=== PATIENT | male | born 1955 | race Caucasian/White ===

== ENCOUNTER 2019-01-19 18:44 | Inpatient (IN) | payer OTHER ==
[~2019-01-19] VITALS: Ht 167.6 cm; Wt 83.5 kg
[2019-01-19 19:14] VITALS: Ht 167.6 cm; Wt 83.5 kg
--- NOTE | 2019-01-19 19:27 | NUR ---
PT CAME IN FOR SCROTAL/PENILE EDEMA X 1 DAY, STATES HE FEELS LIKE HE MIGHT HAVE A HERNIA 'I LOOKED UP PICTURES ON [employer] IMAGES AND THATS WHAT IT LOOKS LIKE.' STATES 'I'M ABLE TO PEE JUST FINE BUT IT DOESN'T GO WHERE IT NEEDS TO. I HAVE TO HOLD A TOILET PAPER TO MY LEG SO IT DOESN'T GO THERE.' PT AWAKE, ALERT, RESPIRATIONS EVEN AND UNLABORED. SAFETY PRECAUTIONS IN PLACE
--- NOTE | 2019-01-19 19:29 | NUR ---
DR. BARKER IN FOR MSE
--- NOTE | 2019-01-19 19:36 | NUR ---
CLUB MANAGER AT BEDSIDE. PT PROVIDED WITH URINE SPECIMEN CUP AND VERBALIZED FOR NEED TO PROVIDE URINE SAMPLE, PT VERBALIZES UNDERSTANDING.
[2019-01-19 19:56] LABS: CALCIUM 7.6 mg/dL (8.5-10.1); CARBON DIOXIDE 24.3 mmol/L (21-32); CHLORIDE SERUM 108 mmol/L (98-107); CREATININE SERUM 0.8 mg/dL (0.7-1.3); GFR1 > 60 mL/min; GLUCOSE SERUM 149 mg/dL (74-106); POTASSIUM SERUM 3.7 mmol/L (3.5-5.1); SODIUM SERUM 140 mmol/L (136-145)
[2019-01-19 19:59] LABS: BASOPHIL % 0.4 % (0-2)
[2019-01-19 20:00] LABS: PLATELET COUNT 127 x10^3mcL (130-400)
[2019-01-19 20:01] LABS: ALKALINE PHOSPHATASE 231 U/L (46-116); ALT/SGPT 47 U/L (16-63); AST/SGOT 121 U/L (15-37); BILIRUBIN TOTAL 1.9 mg/dL (0.20-1.00)
[2019-01-19 20:02] LABS: ALBUMIN 1.9 g/dL (3.4-5.0); TOTAL PROTEIN, SERUM 6.1 g/dL (6.4-8.2)
--- NOTE | 2019-01-19 20:06 | NUR ---
PT TAKEN FOR ULTRASOUND BY TECH. PT AWAKE, ALERT, RESPIRATIONS EVEN AND UNLABORED
--- NOTE | 2019-01-19 21:07 | NUR ---
MEDICATED PER EMAR. PT AWAKE ,ALERT, RESPIRATIONS EVEN AND UNLABORED. SAFETY PRECAUTIONS IN PLACDE
--- NOTE | 2019-01-19 22:31 | NUR ---
PT COMPLAINS OF PAIN 07/03, DR. BARKER MADE AWARE. PT AWAKE, ALERT, RESPIRATIONS EVEN AND UNLABORED. PT TAKEN FOR CT SCAN BY DECATOR OPERATOR.
--- NOTE | 2019-01-20 00:52 | NUR ---
REPORT GIVEN TO MARIAM ROD, ALL QUESTIONS AND CONCERNS WERE ADDRESSED
[2019-01-20 01:14] LABS: MAGNESIUM 1.5 mg/dL (1.8-2.4); PHOSPHOROUS 2.8 mg/dL (2.5-4.9)
[2019-01-20 01:18] LABS: CHOLESTEROL/HDL RATIO 4.7
--- NOTE | 2019-01-20 01:19 | NUR ---
RECEIVED PT VIA W/C FROM E/D ACCOMPANIED BY TRANSPORTER. PT A/A/O X 4, CALM, COOPERATIVE. DENIES CHEST PAIN OR DISCOMFORT AT THIS TIME. MARY RADIAL AND PEDAL PULSES PRESENT. SCROTAL/PENILE EDEMA +4/+3, SCD BY BEDSIDE. NO ACUTE RESPIRATORY DISTRESS NOTED. ABD SOFT, ROUND, NON-TENDER, NORMOACTIVE BOWEL SOUNDS X 4 QUADS, DENIES ABD PAIN OR DISCOMFORT AT THIS TIME, LAST BM 01/19/19, SOFT. VOIDS FREELY, C/O DARK MIGUEL URINE, ABLE TO USE URINAL, C/O GENITAL/SUPRAPUBIC PAIN, SHARP, 10/10. PT AMBULATORY, WITHOUT GAIT OR BALANCE IMPAIRMENT. IV SITE RAC 20G, CDI. ORIENTED PT TO ROOM, BED CONTROLS, CALL LIGHT SYSTEM. SIDE RAILS UP X 2, BED IN LOW POSITION. WILL ENDORSE TO VIOLA PRITCHARD.
[2019-01-20 01:39] VITALS: BP 147/87
--- NOTE | 2019-01-20 01:41 | NUR ---
C/O 10/10 SUPRAPUBIC PAIN. ADMINISTERED PRN NORCO PRESCRIBED. EDUCATED PATIENT THAT DROWSINESS MAY OCCUR. WILL CONTINUE TO MONITOR AND REASSESS PAIN LEVEL. CALL LIGHT IS WITHIN REACH.
--- NOTE | 2019-01-20 02:13 | NUR ---
MAG 1.[address] SAUNDERS. NO NEW ORDERS AT THIS TIME
[2019-01-20 02:39] LABS: AMPHETAMINE QUAL UR NONE DETECTED (See below)
[2019-01-20 02:41] LABS: UA SPECIFIC GRAVITY 1.015 (1.005-1.035)
[2019-01-20 02:42] LABS: microscopic required? YES; urine erythrocyte 2+ (NEGATIVE)
--- NOTE | 2019-01-20 03:28 | NUR ---
PATIENT IS STILL IN PAIN, BUT DOES NOT WANT PRN PAIN MEDS AT THIS TIME. PATIENT STATES, "I'M JUST GOING TO TRY AND SLEEP." NO DISTRESS NOTED. BREATHING EVEN ON ROOM AIR. PROVIDED PATIENT WITH TOWELS TO ELEVATE SCROTUM AND ICE PACKS FOR THE SWELLING (PER DR. SAUNDERS). IV TO THE RAC, S.L, PATENT AND INTACT. CALL LIGHT IS WITHIN REACH. WILL CONTINUE TO MONITOR.
[2019-01-20 05:22] VITALS: BP 124/73
[2019-01-20 06:04] LABS: BASOPHIL % 0.7 % (0-2); PLATELET COUNT 120 x10^3mcL (130-400)
--- NOTE | 2019-01-20 06:13 | NUR ---
PATIENT SLEPT IN INTERVALS THROUGHOUT THE NIGHT. NO ACUTE/SIGNIFICANT CHANGES NOTED. BREATHING EVEN ON ROOM AIR. NO DISTRESS NOTED. IV TO THE RAC, S.L. PATENT AND INTACT. NO REDNESS OR SWELLING NOTED. COMFORT AND SAFETY MEASURES MAINTAINED. ALL NEEDS AND CONCERNS ADDRESSED. NPO AT THIS TIME PER . PATIENT AWARE AND EDUCATED. YELLOW URINE OUTPUT WITH NO ODOR. ICE PACKS TO SCORTUM AND ELEVATED WITH TOWELS. ODERED SCROTAL SUPPORT. CALL LIGHT IS WITHIN REACH. ALL SAFETY MEASURES MAINTAINED. CALL LIGHT IS WITHIN REACH. WILL ENDORSE CARE TO DAY SHIFT RN
[2019-01-20 06:22] LABS: CALCIUM 7.7 mg/dL (8.5-10.1); CARBON DIOXIDE 25.1 mmol/L (21-32); CHLORIDE SERUM 108 mmol/L (98-107); CREATININE SERUM 0.8 mg/dL (0.7-1.3); GFR1 > 60 mL/min; GLUCOSE SERUM 88 mg/dL (74-106); MAGNESIUM 1.7 mg/dL (1.8-2.4); PHOSPHOROUS 2.8 mg/dL (2.5-4.9); POTASSIUM SERUM 3.7 mmol/L (3.5-5.1); SODIUM SERUM 141 mmol/L (136-145)
--- NOTE | 2019-01-20 06:42 | NUR ---
GAVE PATIENT SCROTAL SUPPORT. PATIENT WAS ABLE TO PUT IT ON HIMSELF.
--- NOTE | 2019-01-20 07:42 | NUR ---
A+OX4, NO RESPRIATORY DISTRESS NOTED, MEDSURG, PULSES MODERATE AND EQUAL MARY, SCROTAL/PENILE EDEMA, LUNG SOUNDS CTA, TOLERATING RA, BOWEL SOUNDS ACTIVE, SCROTAL SUPPORT WITH ICE PACKS, GENERALIZED WEAKNESS, IV IN RAC WITH NS @ 10 ML/HR, SITE WNL, RBC 3.75, H/H 12.8/36, PLT 120, CA 7.7.
[2019-01-20 09:27] VITALS: BP 112/71
--- NOTE | 2019-01-20 10:06 | NUR ---
PT COMPLAINING OF SCROTAL PAIN, MOTRIN GIVEN, NO RESPIRATORY DSITRESS NOTED, CALL LIGHT WITHIN REACH. WITNESSED PT SIGN CONSENT FORMS FOR EGD/COLONOSCOPY. PT STATES DR FREDERICK ANSWERED ALL QUESTIONS ABOUT EGD/COLONSCOPY AT BEDSIDE.
--- NOTE | 2019-01-20 12:13 | NUR ---
PT RESTING IN BED, NO RESPRIATORY DSITRESS NOTED, DRINKING ORAL CONTRAST, AWAITING CT SCAN, CALL LIGHT WITHIN REACH.
--- NOTE | 2019-01-20 14:29 | NUR ---
PT BACK ON UNIT FROM CT SCAN. PT REQUESTING TO TAKE SENOKOT, LACTULOSE, AND BOWEL PREP AFTER HE FINISHES LUNCH SINCE HE WAS DOWNSTAIRS FOR CT SCAN.
[2019-01-20 15:29] VITALS: BP 152/87
--- NOTE | 2019-01-20 16:31 | NUR ---
PT RESTING IN BED, NO RESPRIATORY DISTRESS NOTED, DENIES PAIN, BOWEL PREP INITIATED, CALL LIGHT WITHIN REACH.
--- NOTE | 2019-01-20 18:17 | NUR ---
SECOND ROUND OF BOWEL PREP INITIATED, PT RESTING IN BED, DENIES PAIN, FAMILY AT BEDSIDE, NO RESPIRATORY DSITRESS NOTED, CALL LIGHT WITHIN REACH.
--- NOTE | 2019-01-20 19:20 | NUR ---
ENDORSED CARE TO GHISLAINE.
[2019-01-20 19:50] VITALS: BP 144/79
--- NOTE | 2019-01-20 19:50 | NUR ---
PATIENT RECEIVED IN BED CONVERSING WITH FRIENDS, PATIENT IS ORIENTED X4, SPEECH CELAR. BREATHING EVEN AND UNLABORED BS CLEAR, DENIED SOB, ON ROOM AIR SAT 98%, MED/SURG NON TELE PATIENT, HR=96BPM. DENIES CHEST PAINS. IV SITE NO SIGN OF INFILTRATION, PATIENT IS FOR EGD/COLONOSCOPY IN AM STARTED ON BOWEL PRES, PATIENT STATED HAVING LOOSE BROWN STOOL, DENIED N/V, STATED DULL ABDOMINAL DISCOMFORTS RATE AT 2/10, INFORMED ABOUT PAIN MANAGEMENT. SKIN INTACT. PATIENT INFORMED ABOUT PRE PROCEDURAL PREPARATION. SAFETY MAINTAINED. WILL CONTINUE TO MONITOR.
--- NOTE | 2019-01-20 21:38 | NUR ---
SCHEDULED MEDS ADMINISTERED, PATIENT INFORMED ABOUT PURPOSE OF MED\ PRIOR. TOOK PILL WELL.
--- NOTE | 2019-01-21 | NUR ---
PATIENT SLEEPING QUIETLY THIS TIME, PATIENT AWAKEN WHEN NAME CALLED, PATIENT STATED HIS STOOL OUTPUT IS LIGHT BROWN NOW, PATIENT RE-INSTRUCTED ABOUTN NPO ORDER. VERBALIZED UNDERSTANDING.WILL CONTINUE TO MONITOR.
--- NOTE | 2019-01-21 03:00 | NUR ---
REMAINED ASLEEP,BEEN UP FOR WEN BM. SAFETY MAINTAINED. WILL CONTINUE TO MONITOR.
[2019-01-21 06:00] VITALS: BP 131/68
[2019-01-21 06:24] LABS: BASOPHIL % 0.7 % (0-2); PLATELET COUNT 134 x10^3mcL (130-400)
[2019-01-21 06:39] LABS: RED CELL DISTRIBUTION WIDTH 17.3 % (11.5-14.5)
--- NOTE | 2019-01-21 06:40 | NUR ---
SLEPT OFF AND ON DURING THE SHIFT D/T CONSTANT INTERMITTENT, BOWEL MOVEMENT, PATIENT STATED BM 10X, LAST OUTPUT WAS WITH NO STOOL PARTICLES,YELLOW COLOR.COMPLIANT WITH NPO ORDER. SAFETY PRECAUTIONS MAINTAINED AND OBSERVED. WILL ENDORSE CONITNUITY OF CARE TO INCOMING NURSE.
[2019-01-21 06:55] LABS: CARBON DIOXIDE 24.9 mmol/L (21-32); CHLORIDE SERUM 110 mmol/L (98-107); CREATININE SERUM 0.8 mg/dL (0.7-1.3); GFR1 > 60 mL/min; GLUCOSE SERUM 79 mg/dL (74-106); POTASSIUM SERUM 4.5 mmol/L (3.5-5.1); SODIUM SERUM 142 mmol/L (136-145)
--- NOTE | 2019-01-21 07:27 | NUR ---
REPORT GIVEN TO GI LAB FOR COLONOSCOPY.
--- NOTE | 2019-01-21 07:34 | NUR ---
BEDSIDE HANDS OFF AND INTRODUCTION PERFORMED WITH INCOMING NURSE SARAN.
--- NOTE | 2019-01-21 07:58 | NUR ---
PT OFF UNIT FOR EGD/COLONOSCOPY VIA [facility].
[2019-01-21 08:50] VITALS: BP 121/63
--- NOTE | 2019-01-21 09:34 | NUR ---
PT BACK ON UNIT FROM SURGERY, VS STABLE, PT DROWSY BUT EASILY AROUSED, NO RESPRIATORY DSITRESS NOTED, DENIES PAIN, CALL LIGHT WITHIN REACH.
--- NOTE | 2019-01-21 11:32 | NUR ---
PT RESTING IN BED, NO RESPIRATORY DSITRESS NOTED, DENIES PAIN, CALL LIGHT WITHIN REACH.
--- NOTE | 2019-01-21 14:06 | NUR ---
PT RESTING IN BED, NO RESPIRATORY DSITRESS NOTED, DENIES PAIN, FRIEND AT BEDSIDE, CALL LIGHT WITHIN REACH.
[2019-01-21 17:01] VITALS: BP 104/72
[2019-01-21 17:27] VITALS: BP 104/72
--- NOTE | 2019-01-21 18:11 | NUR ---
PT RESTING IN BED, NO RESPRIATORY DSITRESS NOTED, DENIES PAIN, CALL LIGHT WITHIN REACH.
--- NOTE | 2019-01-21 19:07 | NUR ---
ENDORSED CARE TO GHISLAINE ROD.
[2019-01-21 19:56] VITALS: BP 109/61
--- NOTE | 2019-01-21 19:59 | NUR ---
PATIENT RECEIVED IN BED CONVERSING WITH FRIENDS, PATIENT IS ORIENTED X4, SPEECH CELAR. BREATHING EVEN AND UNLABORED BS CLEAR, DENIED SOB, ON ROOM AIR SAT 96%, MED/SURG NON TELE PATIENT, HR=71BPM. DENIES CHEST PAINS. IV SITE NO SIGN OF INFILTRATION. S/P EGD AND COLONOSCOPY TODAY,TOLERATED PROCEDURE, DENIED N/V, TOLERATED REGULAR DIET, DULL ABDOMINAL DISCOMFORTS RATED AT 2/10 INFORMED ABOUT PAIN MANAGEMENT, SKIN TO SCROTAL AREA RED, USING SCROTAL SUPPORT AND APPLIED ICE. SAFETY PRECAUTIONS MAINTAINED. WILL CONTINUE TO MONITOR.
--- NOTE | 2019-01-21 21:30 | NUR ---
SCHEDULED MEDS ADMINISTERED , PATIENT INFORMED ABOUT EACH MEDS ACTIONS AND PURPOSE PRIOR. TOOK PILLS WELL.
--- NOTE | 2019-01-21 23:35 | NUR ---
RESTING QUIETLY AND COMFORTABLY THIS TIME, AWAKEN WHEN NAME CALLED OFFERED NO COMPLAINT. WILL CONTINUE TO MONITOR.
--- NOTE | 2019-01-22 03:00 | NUR ---
REMAINED ASLEEP NO DISTRESS, WILL CONTINUE TO MONITOR.
[2019-01-22 05:40] VITALS: BP 123/59
--- NOTE | 2019-01-22 06:23 | NUR ---
PATIENT STATED HAD A SRESTFUL AND COMFORTABLE NIGHT, HAD X2 LOOSE BM, VOIDED WITHOUT DIFF. IV SITE NO SIGN OF INFILTRATION. COMPLAINED OF DULL BUT BEARABLE ABDOMINAL PAIN.SAFETY PRECAUTION OBSERVED. WILL ENDORSE CONTINUITY OF CARE TO INCOMING NURSE.
[2019-01-22 06:37] LABS: BASOPHIL % 0.7 % (0-2)
[2019-01-22 06:45] LABS: CALCIUM 8.3 mg/dL (8.5-10.1); CARBON DIOXIDE 27.2 mmol/L (21-32); CHLORIDE SERUM 105 mmol/L (98-107); GFR1 > 60 mL/min; GLUCOSE SERUM 95 mg/dL (74-106); POTASSIUM SERUM 3.8 mmol/L (3.5-5.1); SODIUM SERUM 139 mmol/L (136-145)
--- NOTE | 2019-01-22 07:22 | NUR ---
BEDSIDE HANDS OFF AND INTRODUCTION PERFORMED WITH INCOMING NURSE DEBBIE VARGAS.
[2019-01-22 07:34] LABS: PLATELET COUNT 126 x10^3mcL (130-400)
--- NOTE | 2019-01-22 08:00 | NUR ---
RECEIVED PATIENT WITH DIMINISHED BUT CLEAR BREATH SOUNDS AND WITH SOME SWELLING NOTED TO THE SCROLA AND PENIS AND HAS BEEN ON LASIX IVP AND HE DENIES ISSUES AT THIS TIME. HE DENIE SPROBLEMS WITH URINATION AND HAD BEEN ON LACUTLOSE AND VACNCOMYCIN AD ZITHROMAX ORDERED. PATINTHE VITALS AT THIS TIME AT 97.3, 70, 18, 123/59, 98%. PATIENT HAS BEEN OOB TOLERATE AND NO COMPLAITS OF DIZZINDESS AND GAIT IS STEADY. PATIENT HAS BEEN URINATING WITHOUT PROBLEMS AND IS STATUS POST EGD WITH ESOPHAGEAL VARICIES AND GASTRIC VARICIES WELL AND INTERNAL HEMMORROIDS. PATIENT AHS BEEN WITH PLT AT 126 AND THE RBC AT 381 AND THE CA AT 8.3 AND THE CHOLRIDE AT 110.
[2019-01-22 10:13] VITALS: BP 101/55
--- NOTE | 2019-01-22 10:38 | NUR ---
OOB TOLERATE AND GAVE HIS MEDICAITON AND PATIEN TIS IN NO PAIN OR DISTRESS AT THIS TIME. LASIX GIVEN AND WILL MONITOR OUTPUT OF URINE INDICATED.
--- NOTE | 2019-01-22 14:07 | NUR ---
RESTARTED IV PER PATIENT REQUEST. PATIENT TOLERATED WELL. THE OLD SITE WAS NOT HUTUING HIM BUT THE AREA ABOVE THE SITE WAS. VISITOR AT BEDSIDE AND WANTS [employer] OF ORTHOPAEDIC TECHNOLOGIST PAPERWORK. ADVISED THIS CAN BE RUN OFF VIA THE INTERNET AND THAT IT WILL NEED TO BE NOTORIZED. THEY WANT THE PAPER WORK THOUGH.
[2019-01-22 16:10] VITALS: BP 102/54
--- NOTE | 2019-01-22 17:59 | NUR ---
NO ADVERSE RECATION TO THE ANTIBIOTICS AND PATIENT AHS BEEN SLEE;PING ON AND OFF. WILL CONTINUE TO MONTIOR AND ENDORSE TO NURING ON LIME HIDE INSPECTOR.
--- NOTE | 2019-01-22 19:05 | NUR ---
REPORT RECIEVED FROM DAY SHIFT RN. PATIENT WAS SEEN AND IS RESTING COMFORTABLY IN BED. BREATHING EVEN ON ROOM AIR. NO SOB OR RESP DISTRESS NOTED. REPORTS PAIN, BUT TOLERABLE AT THIS TIME. NOT REQUESTING PRN PAIN MED. DENIES CHEST PAIN. IV TO THE LFA. PATENT AND INTACT. NO REDNESS OR SWELLING NOTED. ABLE TO MAKE NEEDS KNOWN. COMFORT AND SAFETY MEASURES MAINTAINED. BED IS LOCKED AND IN THE LOWEST POSITION. CALL LIGHT IS WITHIN REACH. WILL CONTINUE TO MONITOR.
[2019-01-22 21:35] VITALS: BP 106/63
--- NOTE | 2019-01-23 01:49 | NUR ---
PATIENT IS RESTING WITH EYES CLOSED AT THIS TIME. NO SOB OR RESP DISTRESS NOTED. BREATHING EVEN ON ROOM AIR. NO S/S OF PAIN. CALL LIGHT IS WITHIN REACH. WILL CONTINUE TO MONITOR
--- NOTE | 2019-01-23 05:27 | NUR ---
PATIENT SLEPT IN LONG INTERVALS THROUGHOUT THE NIGHT. NO ACUTE/SIGNIFICANT CHANGES NOTED. BREATHING EVEN ON ROOM AIR. NO DISTRESS NOTED. IV TO THE LFA. PATENT AND INTACT. NO REDNESS OR SWELLING NOTED. ALL NEEDS AND CONCERNS ADDRESSED. COMFORT AND SAFETY MEASURES MAINTAINED. CALL LIGHT IS WITHIN REACH. WILL ENDORSE CARE TO DAY SHIFT RN.
[2019-01-23 05:47] VITALS: BP 100/55
[2019-01-23 09:17] VITALS: BP 113/59
[2019-01-23] MEDS ORDERED: ALDACTONE50 MG PO (09:39)
[2019-01-23] MEDS ORDERED: KEFLEX500 M1 PO (09:39)
[2019-01-23] MEDS ORDERED: INDERAL LA80 MG PO (09:39)
[2019-01-23] MEDS ORDERED: LACTULOSE10 GM/152 PO (09:40)
--- NOTE | 2019-01-23 11:03 | NUR ---
PATIENT RECEIFED ALERT AND ORIENTED AND WITHOUT COMPLAINTS OF RETENTIION OR PAIN AT THIS TIME. LUNGS ARE CLEAR AND BOWEL SOUNDS ACTIVE. TO BE SEEN BY THE SURGEON FOR POSSIBLE SURGERY PLANNED. AT THIS TIME HE IS IN NO ACUTE DISTRESS.
[2019-01-23 13:18] VITALS: BP 113/59
--- NOTE | 2019-01-23 14:28 | NUR ---
BLADDER CHANGER JOHANN PLACED DISCHARGE ORDERS, PATIENT IS TO WAIT FOR THE SURGEON, IF SURGEON DOES NOT SHOW BEFORE 4PM, PATIENT OKAY TO GO HOME. PATIENT WILL NEED TO FOLLOW UP WITH PCP. WILL CONTINUE TO MONITOR PATIENT.
--- NOTE | 2019-01-23 15:07 | NUR ---
LOUANN WILLS AWARE, PATIENT STATED THAT DR. CHRISTINE CAME BY TO SEE THE PATIENT. DR CHRISTINE LEFT NO RECOMENDATIONS NOTES. LOUANN WILLS SAID PATIENT IS OKAY TO GO HOME.
--- NOTE | 2019-01-23 15:40 | NUR ---
PATIENT WAS DISCHARGED HOME, PATIENT WAS TAKEN DOWN VIA WHEELCHAIR BY REVENUE STAMPER. PATIENT RECEIVED COPY OF D/C INSTRUCTIONS AND D/C PRESCRIPTIONS. PATIENT UNDERSTANDS AND AGREES WITH D/C PLAN AND INSTRUCTIONS, INCLUDING MEDICATIONS AND FOLLOW UP CARE. PATIENT TOOK HOME ALL PERSONAL BELONGINGS. IV TO LFA REMOVED BY RN STUDENT. ID BANDS REMOVED. ALL QUESTIONS AND CONCERNS ADDRESSED.
== END 2019-01-23 15:37 | disposition home or self-care (01) | DRG 728 ==
LOC: ED 18:44 → MU 01-20 00:32 → ED 01-20 00:57 → MU 01-20 01:04
PROVIDERS: Emergency Medicine; ADMIT Internal Medicine
PROC: 0DB78ZX Excision of Stomach, Pylorus, Via Natural or Artificial Opening Endoscopic, Diagnostic (ICD-10-PCS; principal; 2019-01-20)
PROC: 0DJD8ZZ Inspection of Lower Intestinal Tract, Via Natural or Artificial Opening Endoscopic (ICD-10-PCS; 2019-01-20)
DX: N49.2 Inflammatory disorders of scrotum (principal); K76.6 Portal hypertension; I85.00 Esophageal varices without bleeding; I86.8 Varicose veins of other specified sites; K74.69 Other cirrhosis of liver; B18.2 Chronic viral hepatitis C; N43.2 Other hydrocele; E83.42 Hypomagnesemia; E83.51 Hypocalcemia; K64.8 Other hemorrhoids; K40.20 Bilateral inguinal hernia, without obstruction or gangrene, not specified as recurrent; Z68.29 Body mass index [BMI] 29.0-29.9, adult
CPT/HCPCS: 43235; 45378; 83880; 87491; 87591; J1200; J1610; J1940; J2250; J2270; J2310; J2405; J2543; J3010; J3370; J3490; J7030; J7050; Q0092; Q0163; Q9966